=== PATIENT | female | born 1990 | race Caucasian/White ===

== ENCOUNTER 2016-11-24 13:22 | Inpatient (IN) | payer OTHER ==
[~2016-11-24] VITALS: Ht 170.2 cm; Wt 81.5 kg
[2016-11-24] MEDS ORDERED: KETOROLAC TROMETHAMINE 30 MG/ML VIAL IV STA (13:53)
[2016-11-24] MEDS ORDERED: MoRPHine SULFATE 10 MG/ML CARP/VIAL IV STA (13:53)
[2016-11-24] MEDS ORDERED: ONDANSETRON INJ 2 MG/ML 2 ML VIAL IV STA (13:53)
[2016-11-24] MEDS ORDERED: DEXAMETHASONE SOD INJ 10 MG/ML VIAL IV ONE (14:00)
[2016-11-24] MEDS ORDERED: MoRPHine SULFATE 4 MG/ML 1 ML CARP\\VIAL IV STA (15:25)
--- NOTE | 2016-11-24 15:25 | DIAGNOSTIC IMAGING REPORT ---
LUMBAR SPINE 5 VIEWS CLINICAL HISTORY: Left lower extremity radiculopathy. FINDINGS: 5 views of the lumbar spine are obtained. No prior studies are available for comparison at the time of dictation. The skeletal structures are well mineralized. There is no radiographic evidence of fracture or malalignment. Vertebral body height and alignment are maintained. The transverse and spinous processes are intact. There is no evidence of spondylolysis. The intervertebral disc spaces are well-maintained. The visualized bony pelvis appears intact. There is a nonobstructed abdominal bowel gas pattern. IMPRESSION: Unremarkable radiographic evaluation of the lumbosacral spine. Electronically signed by: Rafi Barron M.D. 11/24/2016 3:23 PM Dictated Date/Time: 11/24/2016 3:23 PM
[2016-11-24] MEDS ORDERED: NURSING VERBAL MED ORDER ONE (17:00)
--- NOTE | 2016-11-24 17:12 | DIAGNOSTIC IMAGING REPORT ---
MRI OF THE LUMBAR SPINE WITHOUT IV CONTRAST CLINICAL HISTORY: Left lower extremity radiculopathy. COMPARISON STUDY: No priors. TECHNIQUE: MRI of the lumbar spine is performed utilizing various T1 and T2-weighted sequences in the axial and sagittal planes. IV contrast was not administered for this examination. FINDINGS: Lumbar spine: Vertebral body height and alignment are maintained throughout the lumbar spine. There is minimal degenerative endplate edema seen at L4-L5. Normal marrow signal intensity is otherwise preserved throughout the visualized bony structures. The transverse and spinous processes appear intact. There is no evidence of spondylolysis. No destructive osseous lesion is seen. Intervertebral discs: There is degenerative disc desiccation seen throughout the lumbar spine. There is mild loss of height at L3-L4 and L4-L5. Spinal cord: The visualized spinal cord is normal in morphology and signal intensity. The conus medullaris terminates at the level of T12. The nerve roots of the cauda equina are normal in morphology. L1-L2: Unremarkable. L2-L3: There is minimal posterior disc bulge with annular fissure. There is only minimal narrowing of the central canal at this level with a minimum AP diameter of 9.5 mm. The neural foramina are widely patent. L3-L4: There is a disc herniation eccentric to the left with an inferiorly extruded fragment. The disc fragment measures up to 1.3 cm. This impinges on the transiting left-sided nerve roots, and is best seen on axial image #15 of 25. There is moderate central canal stenosis at this level with a minimum AP diameter of 6 mm. The neural foramina are clear. Facet arthropathy is of no consequence. L4-L5: There is a small posterior disc bulge with annular fissure. There is no significant acquired compromise of the central canal at this level. The neural foramina are patent. L5-S1: Unremarkable. Sacrum: Visualized sacrum is normal in morphology and signal intensity. Soft tissues: The paraspinous soft tissues are within normal limits. The partially imaged retroperitoneal structures are grossly unremarkable but incompletely assessed. IMPRESSION: 1. There is a disc herniation eccentric to the left with a large inferiorly extruded fragment at L3-L4. This impinges on the transiting left-sided nerve roots and causes moderate central canal stenosis at this level. 2. There is mild central canal stenosis secondary to posterior disc bulge at L2-L3. 3. Degenerative disc disease with mild endplate edema is noted at L4-L5. 4. See discussion for detailed [id number] analysis. Dictated: 11/24/2016 2:56 PM Transcribed: 11/24/2016 5:11 PM [email or web address] Electronically signed by: Rafi Barron M.D. 11/24/2016 5:15 PM Dictated Date/Time: 11/24/2016 2:56 PM
--- NOTE | 2016-11-24 17:25 | EMERGENCY ROOM VISIT NOTE ---
ED Visit Note First contact with patient: 13:34 CHIEF COMPLAINT: Left buttock pain radiating into the left leg times one week HISTORY OF PRESENT ILLNESS: Patient is an otherwise healthy 26-year-old white female who presents to the emergency department for evaluation of pain in her left leg. Her symptoms have been going on for a week. They were initially tolerable, but markedly worsened yesterday and were unbearable today. Patient describes a deep, aching pain in her left buttocks that radiates down her posterior left thigh wrapping around and ending in the anterior knee. She reports associated numbness and tingling into her entire left lower leg, including her foot. She states the pain started in the upper leg, then the numbness and tingling in the lower leg developed over the last 3-4 days. Patient tried using Aleve, Advil, Flexeril and applying heat to the area. Initially this helped, but after the pain increased yesterday, they were ineffective. She presently rates her pain a 10/10. She denies any falls or direct trauma to the area, no heavy lifting or unusual activity that could have injured her back recently. She reports a similar episode several months ago, although not as severe, for which she was seen at an urgent care center and prescribed steroids and tramadol. She states her symptoms improved after a few days of the steroid therapy. She has never had any imaging of her back. She states the left leg feels weak and occasionally gives out on her. She denies any bowel or bladder incontinence or saddle anesthesias. No abdominal pain, nausea, vomiting or urinary symptoms. REVIEW OF SYSTEMS: Review of systems as per HPI. All other systems reviewed were negative. 10 systems reviewed. PMH: Electronic medical records are reviewed and summarized as above/below. See Problem List. SOCIAL HISTORY: Patient lives at home with a roommate. She is employed. She does not smoke or drink alcohol. PHYSICAL EXAM: Vital Signs: Reviewed Nurse's notes. CONSTITUTIONAL: Patient is is a tearful, uncomfortable appearing 26-year-old white female who is awake and alert and in moderate distress due to her stated complaint. There is significant discomfort with position changes. CARDIOVASCULAR: Regular rate and rhythm, with normal S1 and S2, no murmur or gallop or rub is heard. No carotid bruits auscultated. No JVD. Peripheral pulses easily palpable. RESPIRATORY: Breath sounds equal and clear to auscultation without wheezes, rales, or rhonchi heard. Full and equal chest expansion without accessory muscle use or retractions. ABDOMEN: Bowel sounds are present. Abdomen is soft, nontender and nondistended. INTEGUMENTARY: No lesions or rash, normal skin turgor. LYMPH: No lymphadenopathy. SPINE: Examination of the patient's back does not demonstrate any ecchymosis, abrasions or outward signs of trauma. No erythema, increased warmth or induration. There is no midline tenderness over the spinous processes of the lumbar spine, no pain over the SI joint bilaterally. She has pain in her left buttock, no pain over the greater trochanter. She is able to toe and heel rise. She has increased pain with range of motion including rotation and flexion. EXTREMITIES: Leg lengths are symmetrical. Negative logroll bilaterally. Positive left-sided straight leg raise testing. Left patellar and Achilles reflexes are diminished compared to the right. She is unable to dorsiflex the left foot, and she has diminished strength to resistance dorsiflexion on the left, when compared to the right. Sensation to light touch is diminished over the left lower extremity, from the knee to the foot. Distal pulses are easily palpable. EMERGENCY DEPARTMENT COURSE: The patient was seen and evaluated as above. Urine sample was collected and dipped and was unremarkable, and chest was negative. IV lock was initiated and the patient was initially medicated with Toradol 30 mg, morphine 6 mg, Decadron 10 mg and Zofran 4 mg IV. She then went to MRI. Lumbar spine x-rays were obtained after MRI. She reported increased pain after the x-rays and was given an additional morphine 4 mg IV. Lumbar spine x-rays were unremarkable. MRI shows a disc herniation at the L3- L4 level which is eccentric to the left with the neck inferiorly extruded fragment measuring about 1.3 cm. The fragment impinges on the transiting left- sided nerve roots. MRI findings were reviewed with Dr. Marie who agrees that surgical intervention is likely. Patient will be admitted to his service for pain management pending surgical intervention. MRI and x-ray findings were discussed with the patient and her male friend, and treatment recommendations were outlined with her as discussed with Dr. Marie. She was in agreement. She otherwise remained comfortable and hemodynamically stable while in the emergency department until she was taken to the floor. Patient has a large extruded left-sided disc fragment at the L3-L4 level, consistent with her presentation. Her physical exam findings are not consistent with acute cord compression or cauda equina syndrome at this time. She does not have any evidence for epidural abscess or hematoma. LUMBAR SPINE 5 VIEWS CLINICAL HISTORY: Left lower extremity radiculopathy. FINDINGS: 5 views of the lumbar spine are obtained. No prior studies are available for comparison at the time of dictation. The skeletal structures are well mineralized. There is no radiographic evidence of fracture or malalignment. Vertebral body height and alignment are maintained. The transverse and spinous processes are intact. There is no evidence of spondylolysis. The intervertebral disc spaces are well-maintained. The visualized bony pelvis appears intact. There is a nonobstructed abdominal bowel gas pattern. IMPRESSION: Unremarkable radiographic evaluation of the lumbosacral spine MRI OF THE LUMBAR SPINE WITHOUT IV CONTRAST CLINICAL HISTORY: Left lower extremity radiculopathy. COMPARISON STUDY: No priors. TECHNIQUE: MRI of the lumbar spine is performed utilizing various T1 and T2-weighted sequences in the axial and sagittal planes. IV contrast was not administered for this examination. FINDINGS: Lumbar spine: Vertebral body height and alignment are maintained throughout the lumbar spine. There is minimal degenerative endplate edema seen at L4-L5. Normal marrow signal intensity is otherwise preserved throughout the visualized bony structures. The transverse and spinous processes appear intact. There is no evidence of spondylolysis. No destructive osseous lesion is seen. Intervertebral discs: There is degenerative disc desiccation seen throughout the lumbar spine. There is mild loss of height at L3-L4 and L4-L5. Spinal cord: The visualized spinal cord is normal in morphology and signal intensity. The conus medullaris terminates at the level of T12. The nerve roots of the cauda equina are normal in morphology. L1-L2: Unremarkable. L2-L3: There is minimal posterior disc bulge with annular fissure. There is only minimal narrowing of the central canal at this level with a minimum AP diameter of 9.5 mm. The neural foramina are widely patent. L3-L4: There is a disc herniation eccentric to the left with an inferiorly extruded fragment. The disc fragment measures up to 1.3 cm. This impinges on the transiting left-sided nerve roots, and is best seen on axial image #15 of 25. There is moderate central canal stenosis at this level with a minimum AP diameter of 6 mm. The neural foramina are clear. Facet arthropathy is of no consequence. L4-L5: There is a small posterior disc bulge with annular fissure. There is no significant acquired compromise of the central canal at this level. The neural foramina are patent. L5-S1: Unremarkable. Sacrum: Visualized sacrum is normal in morphology and signal intensity. Soft tissues: The paraspinous soft tissues are within normal limits. The partially imaged retroperitoneal structures are grossly unremarkable but incompletely assessed. IMPRESSION: 1. There is a disc herniation eccentric to the left with a large inferiorly extruded fragment at L3-L4. This impinges on the transiting left-sided nerve roots and causes moderate central canal stenosis at this level. 2. There is mild central canal stenosis secondary to posterior disc bulge at L2-L3. 3. Degenerative disc disease with mild endplate edema is noted at L4-L5. 4. See discussion for detailed [id number]-vd-[id number] analysis. Current/Historical Medications No Active Prescriptions or Reported Meds Allergies Coded Allergies: No Known Allergies (Unverified , 11/24/16) Vital Signs Date Time Temp Pulse Resp B/P Pulse Ox O2 Delivery O2 Flow Rate FiO2 11/24/16 16:30 74 16 98 Room Air 11/24/16 15:05 100 Room Air 11/24/16 14:32 78 16 129/96 100 Room Air 11/24/16 13:26 36.7 111 20 125/62 99 Room Air Laboratory Results Test 11/24/16 14:00 Urine Test NEG (NEG) Medications Administered Medications (Trade) Dose Ordered Sig/Florin Route Start Time Stop Time Status Last Admin Dose Admin Ondansetron HCl (Zofran Inj) 4 mg NOW STAT IV 11/24/16 13:53 11/24/16 13:57 DC 11/24/16 14:14 4 MG Dexamethasone Sodium Phosphate (Decadron Inj) 10 mg NOW ONCE IV 11/24/16 14:00 11/24/16 14:01 DC 11/24/16 14:16 10 MG Morphine Sulfate (MoRPHine SULFATE INJ) 6 mg NOW STAT IV 11/24/16 13:53 11/24/16 13:57 DC 11/24/16 14:19 6 MG Ketorolac Tromethamine (Toradol Inj) 30 mg NOW STAT IV 11/24/16 13:53 11/24/16 13:57 DC 11/24/16 14:15 30 MG Morphine Sulfate (MoRPHine SULFATE INJ) 4 mg NOW STAT IV 11/24/16 15:25 11/24/16 15:26 DC 11/24/16 15:38 4 MG Departure Information Impression Primary Impression: Lumbar disc herniation with radiculopathy Dispostion Admitted as an inpatient Prescriptions No Active Prescriptions or Reported Meds Referrals No Doctor, Assigned (PCP) Patient Instructions [facility]
[2016-11-24 18:25] VITALS: O2SAT 98; Ht 170.2 cm; Wt 81.5 kg
[2016-11-24 18:35] VITALS: O2SAT 98
[2016-11-24 19:00] VITALS: BP 113/77; PULSE 98; TEMP 36.8; O2SAT 95
[2016-11-24] MEDS ORDERED: LORAZEPAM INJ 1 MG in SYRINGE 0.5 ML IV PRN (19:15)
[2016-11-24] MEDS ORDERED: LORAZEPAM 1 MG TAB PO PRN (19:15)
[2016-11-24] MEDS ORDERED: NALOXONE HCL 0.4 MG/1 ML VIAL/CARP IV PRN (19:15)
[2016-11-24] MEDS ORDERED: ONDANSETRON INJ 2 MG/ML 2 ML VIAL IV PRN (19:15)
[2016-11-24] MEDS ORDERED: KETOROLAC TROMETHAMINE 15 MG/ML VIAL IV. PRN (20:00)
[2016-11-24] MEDS: SODIUM CHLORIDE 0.9% 1000ML 1,000 ML IV SCH (21:34)
[2016-11-24] MEDS: HYDROmorphone HCL 0.5MG/ML 50 ML CASSETTE IV PRN ×2 (21:37→23:11)
[2016-11-24 21:43] VITALS: BP 104/68; PULSE 91; TEMP 36.9; O2SAT 96
[2016-11-24 22:45] VITALS: BP 116/81; PULSE 88; TEMP 36.7; O2SAT 97
[2016-11-24 23:53] VITALS: BP 113/75; PULSE 83; TEMP 36.6; O2SAT 97
[2016-11-25] VITALS (9 sets, daily range): BP systolic 83–114; BP diastolic 52–81; PULSE 72–84; TEMP 36.5–37; O2SAT 95–99
[2016-11-25] MEDS: HYDROmorphone HCL 0.5MG/ML 50 ML CASSETTE IV PRN ×3 (06:50→22:43)
--- NOTE | 2016-11-25 12:59 | HISTORY & PHYSICAL EXAMINATION ---
DATE OF ADMISSION: 11/25/2016 CHIEF COMPLAINT: Back and left leg pain. HISTORY OF PRESENT ILLNESS: Very pleasant 26-year-old female that presents to the Emergency Room yesterday with significant limiting back and left leg pain. She states she began having some numbness, tingling in lower extremity several weeks ago, marked decline in status this past Saturday, was able to work the past few days, but Saturday was incapacitated secondary to the pain and was seen in the Emergency Room. She describes pain in the left buttock, posterior thigh extending to the anterior tibia. She has numbness and tingling below the knee. This is also concords with pain, below the knee. She describes significant appreciable weakness of the left lower extremity compared to the right. She denies any specific trauma, fall or event. She denies any loss of bowel or bladder control. She is currently on a Dilaudid MATHEMATICIAN which is providing some relief. Again, right lower extremity is asymptomatic. PAST MEDICAL HISTORY: Essentially negative. PAST SURGICAL HISTORY: Includes wisdom teeth extraction. MEDICATIONS: None. PHYSICAL EXAMINATION: She is able to sit up on the side of the bed with markedly positive straight leg raise on the left than on the right. She has 3+ left dorsiflexion, 4/5 plantar flexion, marked as well as a 4 left extensor hallucis longus. She has a 5/5 on the right, symmetric quads. Sensation to light touch cold is markedly limited in left lower extremity compared to the right. She has no abnormal skin markings throughout the lumbar spine. IMAGING DATA: MRI lumbar spine performed yesterday at [facility] does demonstrate evidence of multilevel disk protrusions, annular tear at L2-L3, massive disk herniation at L3-L4 with the free fragment that has migrated caudally to the left side of the canal with significant encroachment of the traversing L4 nerve root. ASSESSMENT: Herniated nucleus pulposus L3-L4 through fragment and caudal migration and neural compromise with weakness and pain in the left lower extremity. PLAN: At this time, she is markedly incapacitated and would like to pursue surgical intervention. Would require lumbar laminotomy and microdiscectomy L3-L4 on the left. Risks, benefits, pros, cons, and alternatives were outlined in detail. Risks include but not limited anesthesia, unsterile process, nerve damage, blood loss requiring and fusion and infection requiring reoperation. Benefits would be improvement in radicular complaints. The patient understands and agrees. We will make her n.p.o. after midnight and hopefully be able to perform surgery tomorrow. TAMIA
--- NOTE | 2016-11-25 16:00 | Anesthesiology Progress Note ---
Pre-OP Anesthesia Assessment Date of Note November 25, 2016. Review patient information reviewed, chart reviewed, labs reviewed, acceptable for surgery Notes 26 yo female scheduled for L3-4 microdiscectomy. She has no significant PMH, meds, nor allergies. Only prior surgery was wisdom teeth extraction. screening negative. No other testing is indicated. GA discussed. She expressed understanding and signed informed consent.
[2016-11-25] MEDS: SODIUM CHLORIDE 0.9% 1000ML 1,000 ML IV SCH (19:34)
[2016-11-26] VITALS (9 sets, daily range): BP systolic 88–129; BP diastolic 57–75; PULSE 71–94; TEMP 36.4–36.9; O2SAT 94–99
[2016-11-26] MEDS: HYDROmorphone HCL 0.5MG/ML 50 ML CASSETTE IV PRN (07:35)
[2016-11-26] MEDS ORDERED: MIDAZOLAM HCL 1 MG/ML 2ML VIAL ONE (13:20)
[2016-11-26] MEDS ORDERED: FENTANYL CITRATE INJ 50 MCG/1 ML 2 ML VIAL ONE ×2 (13:20→17:15)
[2016-11-26] MEDS ORDERED: ROCURONIUM BROMIDE 10 MG/ML 5 ML VIAL ONE (13:51)
--- NOTE | 2016-11-26 15:17 | History & Physical Bridge Note ---
H&P Re-Evaluation Bridge Note: I have examined the patient, reviewed the History & Physical and in the interval since the performance of the History & Physical I have noted the following changes of clinical significance: No changes noted
[2016-11-26] MEDS ORDERED: CEFAZOLIN SOD 1000MG/55 ML D5W IV ONE (15:34)
[2016-11-26] MEDS ORDERED: NURSING VERBAL MED ORDER ONE (15:45)
[2016-11-26] MEDS ORDERED: BUPIVACAINE/EPINEPHRINE 0.5% MPF 1:200,000 30 ML VIAL ONE (15:58)
[2016-11-26] MEDS ORDERED: BACITRACIN 50000 UNIT VIAL ONE (15:58)
[2016-11-26] MEDS ORDERED: ONDANSETRON INJ 2 MG/ML 2 ML VIAL ONE (16:22)
[2016-11-26] MEDS ORDERED: DEXAMETHASONE SOD INJ 4 MG/ML VIAL ONE (16:22)
[2016-11-26] MEDS ORDERED: LARYING-O-JET KIT (LTA) EXT ONE ×2 (16:22)
[2016-11-26] MEDS ORDERED: CEFAZOLIN SOD 1 GM VIAL ONE (16:22)
[2016-11-26] MEDS ORDERED: NEOSTIGMINE METHYLSULFATE 5 MG/5 ML SYR ONE (16:22)
[2016-11-26] MEDS ORDERED: GLYCOPYRROLATE INJ 0.2 MG/ML VIAL ONE (16:22)
[2016-11-26] MEDS ORDERED: PROPOFOL IV EMULSION 10 MG/ML 20 ML VIAL IV ONE (16:22)
[2016-11-26] MEDS ORDERED: LIDOCAINE HCL 2% 2 ML VIAL (20MG/ML) ONE (16:22)
[2016-11-26] MEDS ORDERED: HYDROmorphone INJ 2 MG/ML SYR/VIAL ONE (16:23)
[2016-11-26] MEDS ORDERED: THROMBIN FOR SOLN 20000 UNIT KIT ONE (16:42)
[2016-11-26] MEDS ORDERED: THROMBIN 5000 UNITS KIT ONE (16:42)
[2016-11-26] MEDS ORDERED: GELATIN SPONGE SZ 100 ONE (16:45)
[2016-11-26] MEDS ORDERED: GELATIN SPONGE 12-7MM ONE (16:46)
--- NOTE | 2016-11-26 16:58 | [facility] Post Operative Brief Note ---
Immediate Operative Summary Operative Date November 26, 2016. Pre-Operative Diagnosis Herniated nucleus pulposus L3-L4 through fragment and caudal migration and neural compromise with weakness and pain in the left lower extremity Post-Operative Diagnosis Herniated nucleus pulposus L3-L4 through fragment and caudal migration and neural compromise with weakness and pain in the left lower extremity Procedure(s) Performed Left L3-L4 Laminectomy Surgeon Dr. Marie Communication Engineer Surgeon(s) Edna Parks PA-C Estimated Blood Loss 75ml Findings hnp Specimens None per surgeon
[2016-11-26] MEDS ORDERED: HYDROmorphone INJ 2 MG/ML SYR/VIAL IV PRN ×2 (17:00→17:15)
[2016-11-26] MEDS ORDERED: ACETAMINOPHEN 500 MG TAB PO PRN (17:00)
[2016-11-26] MEDS ORDERED: DO NOT ADMINISTER FLU VACCINE PRN ×3 (17:00)
[2016-11-26] MEDS ORDERED: DO NOT ADMINISTER PNEUMOCOCCAL VACCINE PRN ×2 (17:00)
[2016-11-26] MEDS ORDERED: ACETAMINOPHEN 325 MG TAB PO PRN (17:00)
[2016-11-26] MEDS ORDERED: LORAZEPAM INJ 1 MG in SYRINGE 0 ML IV PRN (17:00)
[2016-11-26] MEDS ORDERED: MAGNESIUM HYDROXIDE SUSP 30 ML UDC PO PRN (17:00)
[2016-11-26] MEDS ORDERED: LORAZEPAM 1 MG TAB PO PRN (17:00)
[2016-11-26] MEDS ORDERED: FLOSEAL HEMOSTATIC MATRIX 5ML TOP ONE (17:12)
[2016-11-26] MEDS ORDERED: PHENYLEPHRINE 100MCG/ML 5ML SYR IV PRN (17:15)
[2016-11-26] MEDS ORDERED: ATROPINE SULFATE 0.1 MG/ML 5ML SYR IV PRN (17:15)
[2016-11-26] MEDS ORDERED: FLUMAZENIL 0.1 MG/1 ML 10 ML VIAL IV PRN (17:15)
[2016-11-26] MEDS ORDERED: MEPERIDINE HCL 25 MG/ML CARP IV PRN (17:15)
[2016-11-26] MEDS ORDERED: LABETALOL HCL IV 5 MG/ML 20ML IV PRN (17:15)
[2016-11-26] MEDS ORDERED: FENTANYL CITRATE INJ 50 MCG/1 ML 2 ML VIAL IV PRN (17:15)
[2016-11-26] MEDS ORDERED: EpHEDrine SULFATE INJ 50 MG/ML AMP IV PRN (17:15)
[2016-11-26] MEDS ORDERED: NALOXONE HCL 0.4 MG/1 ML VIAL/CARP IV PRN (17:15)
[2016-11-26] MEDS ORDERED: ONDANSETRON INJ 2 MG/ML 2 ML VIAL IV PRN (17:15)
--- NOTE | 2016-11-26 17:39 | Anesthesiology Progress Note ---
Anesthesia Post Op Note Date & Time November 26, 2016 at 17:39 Vital Signs Pain Intensity: 2 Vital Signs Past 12 Hours Date Time Temp Pulse Resp B/P Pulse Ox O2 Delivery O2 Flow Rate FiO2 11/26/16 17:03 37.4 94 16 126/85 100 Mask 10 11/26/16 15:00 37 83 16 114/77 97 Room Air 11/26/16 11:46 36.9 75 16 110/75 98 Room Air 11/26/16 07:43 36.7 16 102/71 97 Room Air 11/26/16 07:30 Room Air Notes Mental Status: alert / awake / arousable, participated in evaluation Pt Amnestic to Procedure: Yes Nausea / Vomiting: adequately controlled Pain: adequately controlled Airway Patency, RR, SpO2: stable & adequate BP & HR: stable & adequate Hydration State: stable & adequate Anesthetic Complications: no major complications apparent
--- NOTE | 2016-11-26 18:23 | OPERATIVE REPORT ---
DATE OF OPERATION: 11/26/2016 PREOPERATIVE DIAGNOSIS: Herniated nucleus pulposus. POSTOPERATIVE DIAGNOSIS: Same. PROCEDURE PERFORMED: Lumbar laminotomy L3-4 on the left with excision of herniated free fragment. SURGEON: Dr. Gibson Marie. OYSTER CULTURIST: Edna Lopez PA-C. Due to the complex nature of the procedure, the entire surgery was performed with the care assistant of GABE Dhillon. The photo studio assistant, under direct supervision, was involved in the actual performance of all aspects of the surgical procedure including hemostasis, tissue retraction and incision, instrument management, patient positioning, and wound closure. ANESTHESIA: General. DISPOSITION: The patient awakened and taken to PACU in stable condition. HISTORY OF PATIENT'S PROBLEMS: A 26-year-old female who presents to the Emergency Room with above-mentioned diagnosis. After failing a course of nonoperative care being significantly incapacitated with neural deficits, elected to undergo the above-mentioned procedure. Risks, benefits, pros, cons, and alternatives were outlined in detail preoperatively. DESCRIPTION OF PROCEDURE: The patient was met preoperatively and the case discussed and all questions were addressed. At that point, the patient was taken back to operative suite and after undergoing successful general endotracheal intubation via department of anesthesia was placed in prone position on Robinson table atop Mauricio frame. All bony prominences were well padded and the eyes were inspected to ensure there was no external pressure placed upon them. At this point, the lumbar spine was prepped and draped in normal sterile fashion. With assistance of fluoroscopy, identified the L3-4 disc space and a midline incision was created overlying this region. Sharp dissection with the assistance of Bovie cautery performed down to and exposing the interlaminar space at L3-4 on the left. A self-retaining retractor was placed. I then performed a small laminotomy excising the lateral portion of ligament flavum to expose a significantly severely compressed traversing L4 nerve root. This mobilized medially. Several very large fragments of free disc material were identified and removed. Significant epidural bleeding was encountered. We did place a small piece of Gelfoam with thrombin in the laminotomy site. This seems to control the bleeding perfectly. Incision was then copiously irrigated, closed with #1 Vicryl in the fascia, 2-0 Vicryl subcutaneously, 4-0 Monocryl for final skin closure. Steri-Strips and sterile dressing placed. The patient was awakened and taken to PACU in stable condition. I attest to the content of the Intraoperative Record and any orders documented therein. Any exceptio ns are noted below.
[2016-11-26] MEDS: LACTATED RINGER'S 1000ML 1,000 ML IV SCH (18:31)
[2016-11-26] MEDS: DOCUSATE SODIUM 100 MG CAP PO SCH (20:59)
[2016-11-26] MEDS: OXYCODONE HCL IR 5 MG TAB (IMMEDIATE RELEASE) PO PRN (21:42)
[2016-11-27] MEDS: DEXAMETHASONE INJ 6 MG in SYRINGE 0 ML IV SCH ×2 (00:17→10:00)
[2016-11-27] MEDS: CEFAZOLIN IV 1,000 MG in DEXTROSE 5% 50ML 50 ML IV SCH ×2 (00:18→10:00)
[2016-11-27 04:02] VITALS: BP 112/61; PULSE 68; TEMP 36.7; O2SAT 95
[2016-11-27] MEDS: OXYCODONE HCL IR 5 MG TAB (IMMEDIATE RELEASE) PO PRN (04:13)
[2016-11-27] MEDS: LACTATED RINGER'S 1000ML 1,000 ML IV SCH (06:08)
[2016-11-27 07:14] VITALS: BP 101/67; PULSE 68; TEMP 36.9; O2SAT 95
--- NOTE | 2016-11-27 07:39 | DIAGNOSTIC IMAGING REPORT ---
INTRAOPERATIVE RADIOGRAPH CLINICAL HISTORY: L3-L4 laminectomy. Fluoroscopy time: 5 seconds. FINDINGS: A single spot fluoroscopic view of the lumbar spine is presented. A surgical probe projects posteriorly at the level of L4. IMPRESSION: Intraoperative image from L3 -L4 laminectomy as above. Electronically signed by: Rafi Barron M.D. 11/26/2016 6:40 PM Dictated Date/Time: 11/26/2016 6:39 PM
--- NOTE | 2016-11-27 09:43 | Discharge Instructions ---
Discharge Instructions Date of Service November 27, 2016. Admission Reason for Admission: Sciatica With Herniated Disc Discharge Discharge Diagnosis / Problem: hnp Discharge Goals Goal(s): Improve function Activity Recommendations Activity Limitations: per Instructions/Follow-up section . Instructions / Follow-Up Instructions / Follow-Up ACTIVITY RECOMMENDATIONS: SELF CARE INSTRUCTIONS AFTER A LAMINECTOMY 1. No prolonged sitting (less than 30 minutes for the first 3 weeks after surgery). 2. No bending, lifting more than 5 pounds, or twisting (roll like a log when turning in bed). 3. You may shower 3 days after surgery if no drainage from wound. Thoroughly dry wound. Do not soak in the tub. 4. Please walk as much as you can for exercise. Gradually increase the distance that you walk as your endurance increases. 5. You may drive in 7-10 days if you are comfortable and no longer requiring pain medications. SPECIAL CARE INSTRUCTIONS: VERY IMPORTANT TO READ AND REVIEW A. Your surgical incision has been closed with a cosmetic suture under the skin that will dissolve in about 6 weeks. In 14 days, you can use a pair of clean scissors and cut the suture that is left outside of the skin at the ends of your incision. B. Complications are uncommon, but please contact us if you have any signs or symptoms of: 1. wound infection (fever higher than 102.5 degrees F, redness, separation of wound, drainage, or increasing pain from the incision) 2. blood clots in legs (pain, swelling, redness and warmth in legs) 3. urinary tract infection (fever higher than 102.5 degrees, burning upon urination or increased frequency of urination) 4. nerve problems (inability to walk on your toes or heels, numbness, loss of bowel or bladder control) 5. any other symptoms that concern you. C. Please call the office at if you have any concerns or questions about your operation or recovery. MANAGING PAIN AFTER SPINAL SURGERY 1. Narcotic medication is intended for short-term use and will be provided for surgical pain. Surgical pain usually lasts for a period of 4-6 weeks. Narcotic medication includes Percocet, Vicodin, Darvocet, Tylenol #3 or Lortab. 2. Longer-term pain is more appropriately treated with non-narcotic medication such as Tylenol ES. 3. Muscle spasm is not appropriately treated with narcotics. Muscle relaxers such as Soma, Flexeril or Skelaxin can be used along with Tylenol ES. 4. Remember that we all live with some "aches and pains". This is not unusual or uncommon after an injury or as we get older. 5. We will provide appropriate medication within the normal guidelines of their prescribed use. We will also be very cautious and aware of potential abuse and extended duration of patients' medication needs. 6. Please allow 2-3 days to process refills. Prescriptions will not be mailed but must be picked up at the office. FOLLOW UP VISIT: Keep your scheduled follow-up appointment. Any questions, please call the office at . Current Hospital Diet Patient's current hospital diet: Regular Diet Discharge Diet Recommended Diet: Regular Diet Procedures Procedures Performed: Left L3-L4 Laminectomy Pending Studies Studies pending at discharge: no Medical Emergencies . Who to Call and When: Medical Emergencies: If at any time you feel your situation is an emergency, please call 911 immediately. . Non-Emergent Contact Non-Emergency issues call your: Primary Care Provider . "Provider Documentation" section prepared by Gibson Marie. . VTE Core Measure Inpt VTE Proph given/why not?: Isa Diaz, SCD's
[2016-11-27] MEDS ORDERED: RXC5 PO (09:44)
[2016-11-27] MEDS: DOCUSATE SODIUM 100 MG CAP PO SCH (10:01)
--- NOTE | 2016-11-27 10:58 | Anesthesiology Progress Note ---
Anesthesia Post Op Note Date & Time November 27, 2016 at 10:58 Vital Signs Pain Intensity: 4.0 Vital Signs Past 12 Hours Date Time Temp Pulse Resp B/P Pulse Ox O2 Delivery O2 Flow Rate FiO2 11/27/16 07:45 Room Air 11/27/16 07:14 36.9 68 16 101/67 95 Room Air 11/27/16 04:02 36.7 68 16 112/61 95 Room Air 11/26/16 23:25 Room Air 11/26/16 23:10 36.8 94 16 96/63 94 Room Air Notes Mental Status: alert / awake / arousable, participated in evaluation Pt Amnestic to Procedure: Yes Nausea / Vomiting: adequately controlled Pain: adequately controlled Airway Patency, RR, SpO2: stable & adequate BP & HR: stable & adequate Hydration State: stable & adequate Anesthetic Complications: no major complications apparent
--- NOTE | 2016-11-27 12:24 | DISCHARGE SUMMARY ---
PRINCIPAL DIAGNOSIS: Herniated nucleus pulposus, L4-L5 on the left. HOSPITAL COURSE FOLLOWS: On 11/25/2015 patient was admitted from the Emergency Room with significant discomfort. Placed a MEAT SMOKER for pain control. On 11/25/2016 we discussed possible surgical treatment, she elected to undergo a laminotomy. Surgery went well on 11/26/2016 and on 11/27/2016 pain was controlled. No more nausea, vomiting, subsequently discharged home. Discharge instructions found on the chart for further review.
[2016-11-27 13:57] VITALS: BP 115/77; PULSE 68; TEMP 36.4; O2SAT 98
[2016-11-27 14:16] VITALS: BP 115/77; PULSE 68; TEMP 36.4; O2SAT 98
[2016-11-28] MEDS ORDERED: BISACODYL 5 MG TABEC PO PRN (06:00)
[2016-11-28] MEDS ORDERED: BISACODYL 10 MG SUPP PR PRN (06:00)
[2016-11-28] MEDS ORDERED: POLYETHYLENE (MIRALAX) 17 GM PACK PO SCH (09:00)
== END 2016-11-27 16:00 | disposition home or self-care (01) | DRG 517 ==
LOC: ENRESERVTM → ENRESERVDT → C.EDB 13:25 → C.MSN 16:59
PROVIDERS: ADMIT Orthopaedic Surgery Orthopaedic Surgery of the Spine; ATTEND Orthopaedic Surgery Orthopaedic Surgery of the Spine
PROC: 0SC Lower Joints, Extirpation (ICD-10-PCS; principal; 2016-11-26 15:15)
PROC: 01NB0ZZ Release Lumbar Nerve, Open Approach (ICD-10-PCS; principal; 2016-11-26 15:15)
DX: M51.16 Intervertebral disc disorders with radiculopathy, lumbar region (principal)